=== PATIENT | female | born 1935 | race Caucasian/White ===

== ENCOUNTER 2019-01-18 13:49 | Emergency (ER) | payer MEDICARE, OTHER ==
[~2019-01-18] VITALS: Ht 149.9 cm; Wt 56.8 kg
[2019-01-18 14:13] LABS: BACTERIA,URINE NEGATIVE /HPF; BILIRUBIN,URINE NEGATIVE (NEGATIVE); CLARITY,URINE CLEAR; COLOR,URINE PALE YELLOW; GLUCOSE, URINE (UA) NEGATIVE (NEGATIVE); KETONES,URINE NEGATIVE (NEGATIVE); LEUKOCYTE ESTERASE ,URINE NEGATIVE (NEGATIVE); NITRITE,URINE NEGATIVE (NEGATIVE); PH,URINE 7.5 (5-9); PROTEIN,URINE NEGATIVE (NEGATIVE); UROBILINOGEN,URINE 0.2 MG/DL (NORMAL); WBC,URINE RARE /HPF
--- NOTE | 2019-01-18 14:53 | ED Neurological Problem ---
General Stated Complaint: ALTERED MENTAL STATUS; VISION PROBLEM Source: patient Exam Limitations: no limitations History of Present Illness Date Seen by Provider: Jan 18, 2019 Time Seen by Provider: 14:30 Initial Comments The patient is a pleasant 83-year-old female who presents for evaluation of 2.5 weeks of difficulty concentrating, some confusion, and some speech difficulty. She also reports some left facial tingling, some tingling from the left knee to the left foot, and some left leg weakness. She reports that she has spinal stenosis and does sometimes have left leg weakness. She was seen by her PCP who was concerned that she was having a TIA and she did have a CT scan of her head (on Wednesday) and some blood tests. She did not hear the results of the blood tests so assumes that they were unremarkable. She is alert and oriented 4, calm, and appears to be in no at distress this time. She reports a mild headache. She denies vision changes, difficulty walking, chest pain or shortness of breath, abdominal or back pain, nausea or vomiting, fevers or chills, palpitations or syncope. Additionally she reports that she is not sleeping well, dizzy, and feels shaky. Is been scheduled for an outpatient echo and carotid ultrasound. Timing/Duration: other (2.5 weeks) Severity: mild Associated Symptoms: confusion, numbness in legs/feet, paresthesia Allergies and Home Medications Allergies Coded Allergies: No Known Drug Allergies (Unverified , 01/18/19) Patient Home Medication List Home Medication List Reviewed: Yes Review of Systems Review of Systems Constitutional: malaise Eyes: No Symptoms Reported Ears, Nose, Mouth, Throat: no symptoms reported Respiratory: no symptoms reported Cardiovascular: no symptoms reported Gastrointestinal: no symptoms reported Genitourinary: no symptoms reported Musculoskeletal: no symptoms reported Skin: no symptoms reported Psychiatric/Neurological: Headache, Numbness, Weakness Endocrine: No Symptoms Reported Hematologic/Lymphatic: No Symptoms Reported All Other Systems Reviewed Negative Unless Noted: Yes Past Djzedsi-Eszofk-Myidvb Hx Past Med/Social Hx: Reviewed Nursing Past Med/Soc Hx Physical Exam Vital Signs Vital Signs - First Documented 01/18/19 14:00 Temp 37.1 Pulse 76 Resp 18 B/P (MAP) 160/66 (97) Pulse Ox 97 O2 Delivery Room Air Capillary Refill : Height, Weight, BMI Height: '" Weight: lbs. oz. kg; BMI Method: General Appearance: WD/WN, no apparent distress HEENT: PERRL/EOMI, normal ENT inspection, pharynx normal Neck: non-tender, full range of motion Respiratory: chest non-tender, normal breath sounds, no respiratory distress, no accessory muscle use Cardiovascular: regular rate, rhythm, no JVD, other (right leg 1+ edema (pt r eports chronic)) Gastrointestinal: normal bowel sounds, non tender, soft Back: normal inspection, no vertebral tenderness Extremities: normal range of motion, non-tender, normal inspection, no calf tenderness, pedal edema (1+ on right) Neurologic/Psychiatric: receiving associate store II-XII nml as tested, no motor/sensory deficits, alert, normal mood/affect, oriented x 3, other (mild confusion, NIH: 1 (facial paresthesia)) Crainal Nerves: normal hearing, normal speech, PERRL Skin: normal color, warm/dry Progress/Results/Core Measures Results/Orders Lab Results Laboratory Tests Test 01/18/19 13:56 01/18/19 14:30 Range/Units Urine Color PALE YELLOW Urine Clarity CLEAR Urine pH 7.5 5-9 Urine Specific [place] 1.010 L 1.016-1.022 Urine Protein NEGATIVE NEGATIVE Urine Glucose (UA) NEGATIVE NEGATIVE Urine Ketones NEGATIVE NEGATIVE Urine Nitrite NEGATIVE NEGATIVE Urine Bilirubin NEGATIVE NEGATIVE Urine Urobilinogen 0.2 NORMAL MG/DL Urine Leukocyte Esterase NEGATIVE NEGATIVE Urine RBC (Auto) NEGATIVE NEGATIVE Urine RBC NONE /HPF Urine WBC RARE /HPF Urine Squamous Epithelial Cells NONE /HPF Urine Crystals NONE /LPF Urine Bacteria NEGATIVE /HPF Urine Casts NONE /LPF Urine Mucus NONE /LPF Urine Culture Indicated NO White Blood Count 7.7 4.3-11.0 10^3/uL Red Blood Count 4.64 4.35-5.85 10^6/uL Hemoglobin 13.3 11.5-16.0 G/DL Hematocrit 41 35-52 % Mean Corpuscular Volume 87 80-99 FL Mean Corpuscular Hemoglobin 29 25-34 PG Mean Corpuscular Hemoglobin Concent 33 32-36 G/DL Red Cell Distribution Width 12.7 10.0-14.5 % Platelet Count 267 130-400 10^3/uL Mean Platelet Volume 10.3 7.4-10.4 FL Neutrophils (%) (Auto) 72 42-75 % Lymphocytes (%) (Auto) 14 12-44 % Monocytes (%) (Auto) 8 0-12 % Eosinophils (%) (Auto) 4 0-10 % Basophils (%) (Auto) 1 0-10 % Neutrophils # (Auto) 5.5 1.8-7.8 X 10^3 Lymphocytes # (Auto) 1.1 1.0-4.0 X 10^3 Monocytes # (Auto) 0.6 0.0-1.0 X 10^3 Eosinophils # (Auto) 0.3 0.0-0.3 10^3/uL Basophils # (Auto) 0.1 0.0-0.1 10^3/uL Prothrombin Time 13.5 12.2-14.7 SEC INR Comment 1.0 0.8-1.4 Activated Partial Thromboplast Time 26 24-35 SEC Sodium Level 144 135-145 MMOL/L Potassium Level 3.6 3.6-5.0 MMOL/L Chloride Level 102 98-107 MMOL/L Carbon Dioxide Level 26 21-32 MMOL/L Anion Gap 16 H 5-14 MMOL/L Blood Urea Nitrogen 19 H 7-18 MG/DL Creatinine 1.17 0.60-1.30 MG/DL Estimat Glomerular Filtration Rate 44 BUN/Creatinine Ratio 16 Glucose Level 101 70-105 MG/DL Calcium Level 10.5 H 8.5-10.1 MG/DL Corrected Calcium 8.5-10.1 MG/DL Total Bilirubin 0.5 0.1-1.0 MG/DL Aspartate Amino Transf (AST/SGOT) 21 5-34 U/L Alanine Aminotransferase (ALT/SGPT) 16 0-55 U/L Alkaline Phosphatase 98 40-136 U/L Troponin I < 0.30 <0.30 NG/ML Total Protein 7.4 6.4-8.2 GM/DL Albumin 4.6 H 3.2-4.5 GM/DL My Orders Orders - GIANA TEJADA DO Ua Culture If Indicated (01/18/19 13:56) Cbc With Automated Diff (01/18/19 14:29) Comprehensive Metabolic Panel (01/18/19 14:29) Creatine Kinase Mb (01/18/19 14:29) Protime With Inr (01/18/19 14:29) Partial Thromboplastin Time (01/18/19 14:29) Troponin I (01/18/19 14:29) Ct Head Wo-R/O Stroke (01/18/19 14:29) Ekg Tracing (01/18/19 14:29) Continuous Ekg Monitoring (01/18/19 14:29) Vital Signs/I&O 01/18/19 14:00 Temp 37.1 Pulse 76 Resp 18 B/P (MAP) 160/66 (97) Pulse Ox 97 O2 Delivery Room Air Progress Progress Note : Progress Note @1600 - patient updated on lab and imaging results. She is agreeable to the plan to transfer to higher level care with neurology and MRI capability. She denies any new complaints at this time and prefers to be transferred to [facility]. @1613 - Dr. Phillips at [facility] accepts the transfer. Comment @1513 - Normal sinus rhythm, rate of 74, borderline left axis deviation, no acute ischemic findings noted, no STEMI, reviewed and interpreted by myself. Departure Impression Primary Impression: Stroke-like symptoms Additional Impressions: Facial paresthesia Left leg paresthesias Altered mental status Disposition: 02 XFER SHT-TRM HOSP Condition: Stable Transfer Time Spoke to Accepting Phy: 16:[address] Phillips accepts the transfer to [facility]. Transfer Time: 16:15 Transfer Facility: [facility] Method of Transfer: EMS Departure-Patient Inst. Referrals: SELF,SAMANTHA TELLO (PCP/Family) Primary Care Physician GIANA TEJADA DO Jan 18, 2019 14:53
--- NOTE | 2019-01-18 14:57 | Diagnostic Imaging Report ---
PROCEDURE: CT head wo r/o stroke. TECHNIQUE: Multiple contiguous axial images were obtained through the brain without the use of intravenous contrast. Auto Exposure Controls were utilized during the CT exam to meet ALARA standards for radiation dose reduction. INDICATION: Left-sided weakness. COMPARISON: No prior studies are available for comparison. FINDINGS: Ventricles and sulci are appropriate for the patient's age. No sulcal effacement or midline shift is seen. No acute intra-axial or extra-axial hemorrhage is identified. Cisterns are patent. Visualized paranasal sinuses are clear. IMPRESSION: No acute intracranial process is detected. Dictated by: Dictated on workstation # [id number]
[2019-01-18 15:01] LABS: BASOPHILS % (AUTO) 1 % (0-10); EOSINOPHILS % (AUTO) 4 % (0-10); HEMATOCRIT 41 % (35-52); HEMOGLOBIN 13.3 G/DL (11.5-16.0); LYMPHOCYTES % (AUTO) 14 % (12-44); MEAN CORPUSCULAR HEMOGLOBIN 29 PG (25-34); MEAN CORPUSCULAR HGB CONC 33 G/DL (32-36); MEAN CORPUSCULAR VOLUME 87 FL (80-99); MEAN PLATELET VOLUME 10.3 FL (7.4-10.4); MONOCYTES % (AUTO) 8 % (0-12); NEUTROPHILS % (AUTO) 72 % (42-75); PLATELET COUNT 267 10^3/uL (130-400); RED CELL DISTRIBUTION WIDTH 12.7 % (10.0-14.5); WHITE BLOOD COUNT 7.7 10^3/uL (4.3-11.0)
[2019-01-18 15:02] LABS: BASOPHILS # (AUTO) 0.1 10^3/uL (0.0-0.1); EOSINOPHILS # (AUTO) 0.3 10^3/uL (0.0-0.3); LYMPHOCYTES # (AUTO) 1.1 X 10^3 (1.0-4.0); MONOCYTES # (AUTO) 0.6 X 10^3 (0.0-1.0); NEUTROPHILS # (AUTO) 5.5 X 10^3 (1.8-7.8)
[2019-01-18 15:03] LABS: PROTHROMBIN TIME PATIENT 13.5 SEC (12.2-14.7)
[2019-01-18 15:10] LABS: ALANINE AMINOTRANSFERASE 16 U/L (0-55); ALKALINE PHOSPHATASE 98 U/L (40-136); BILIRUBIN,TOTAL 0.5 MG/DL (0.1-1.0); BUN/CREATININE RATIO 16; CALCIUM 10.5 MG/DL (8.5-10.1); CARBON DIOXIDE 26 MMOL/L (21-32); CHLORIDE 102 MMOL/L (98-107); CREATININE SERUM 1.17 MG/DL (0.60-1.30); GFR ESTIMATED 44; GLUCOSE 101 MG/DL (70-105); POTASSIUM 3.6 MMOL/L (3.6-5.0); SODIUM 144 MMOL/L (135-145)
[2019-01-18 15:11] LABS: ALBUMIN 4.6 GM/DL (3.2-4.5); TOTAL PROTEIN 7.4 GM/DL (6.4-8.2)
[2019-01-18] MEDS ORDERED: ASPIRIN 81 MG CHEW (CHILDREN'S ASA) PO ONE (16:30)
[2019-01-18] MEDS ORDERED: ACETAMINOPHEN 500 MG TAB (TYLENOL) PO ONE (16:30)
[2019-01-18 18:00] VITALS: BP 184/68
[2019-01-19 15:06] LABS: CREATINE KINASE MB 1.4 NG/ML (<6.6)
== END 2019-01-18 18:00 | disposition short-term general hospital (02) ==
LOC: ER FS 13:52
DX: R20.2 Paresthesia of skin (principal); R41.82 Altered mental status, unspecified
CPT/HCPCS: 36415; 70450; 80053; 81000; 82553; 84484; 85025; 85610; 85730; 93005

== ENCOUNTER → 2019-03-13 | Outpatient (CLI) | payer MEDICARE, OTHER ==
[2019-03-13 09:13] LABS: POTASSIUM 4.3 MMOL/L (3.6-5.0)
[2019-03-13 09:14] LABS: ALBUMIN 4.1 GM/DL (3.2-4.5); BILIRUBIN,TOTAL 0.6 MG/DL (0.1-1.0); CALCIUM 9.6 MG/DL (8.5-10.1); CREATININE SERUM 1.37 MG/DL (0.60-1.30); TOTAL PROTEIN 6.6 GM/DL (6.4-8.2)
--- NOTE | 2019-03-13 10:00 | Diagnostic Imaging Report ---
PROCEDURE: CT abdomen and pelvis without contrast. TECHNIQUE: Multiple contiguous axial images were obtained through the abdomen and pelvis without the use of intravenous contrast. Auto Exposure Controls were utilized during the CT exam to meet ALARA standards for radiation dose reduction. INDICATION: Left upper quadrant pain and tenderness. FINDINGS: The heart size is normal. The lung bases are clear. The liver is normal in size without focal lesions. Gallbladder is unremarkable. No biliary ductal dilatation. Spleen is normal. The pancreas and adrenal glands are unremarkable. Kidneys are normal in appearance. There is no evidence of nephrolithiasis or obstructive uropathy. There is some atherosclerotic calcification of the aorta which is nonaneurysmal. Bowel gas pattern is nonspecific. There is no free air. There is no ascites. There are no focal inflammatory changes. There is some diverticular disease without evidence of diverticulitis. Uterus is normal. There are degenerative changes in the spine. IMPRESSION: 1. Diverticular disease without evidence of diverticulitis. 2. Degenerative changes in the spine. 3. No other acute abnormality in the abdomen or pelvis. Dictated by: Dictated on workstation # [id number]
== END ==
LOC: RAD FS 08:26
PROVIDERS: ATTEND Family Medicine
DX: G45.9 Transient cerebral ischemic attack, unspecified (principal); M47.9 Spondylosis, unspecified; K57.90 Diverticulosis of intestine, part unspecified, without perforation or abscess without bleeding
CPT/HCPCS: 36415; 74176; 80053